=== PATIENT | male | born 1950 | race Caucasian/White ===

== ENCOUNTER → 2016-11-20 | Outpatient (CLI) | payer MEDICARE, BC, OTHER ==
[~2016-11-20] MED LIST: ASPIRIN EC81 M1 PO; FISH OIL300 MG PO; LOPRESSOR PO; NAPROXEN250 MG PO; RAMIPRIL5 MG PO; VYTORIN 10-40 M1 TAB PO
--- NOTE | ~2016-11-20 | MR3 ---
[facility] A Service of [facility] RADIOLOGY TEXT RESULTS PATIENT: NAVEEN LY LOCATION: [facility] : 52 UNIT #: [id number] AGE: [address]: Earnest Caldwell MD SEX: M ORDER DR: [id number] [facility] [address] [place], [place] [address] [id number] O MR#: [id number] Acc #: [id number] NAME: NAVEEN LY : 1950 SEX: M STUDY DATE/TIME: 11/20/2016 15:39 UNIT: [facility] ROOM: STUDY DESCRIPTION: MR Abdomen Wo Contrast Attending Physician: Earnest Caldwell M.D. Referring Physician: Earnest Caldwell M.D. Ordering Physician: Earnest Caldwell M.D. Primary Care Physician: Dio Garrett M.D. MRI CENTER REPORT This report is preliminary unless electronic signature is present. EXAM MRI abdomen without contrast. INDICATION Indeterminate left renal lesion on previous CT. Observation for renal mass versus cyst. PROCEDURE Multiplanar, multisequence MR imaging of the abdomen without the administration of contrast. COMPARISON Unenhanced CT from 08/24/2016. FINDINGS ABDOMEN WITHOUT CONTRAST: Liver has normal size and morphology. No hepatic fat or iron deposition. There are several hepatic cysts, largest is in central segment 6 and measures up to 2.2 cm. The spleen, adrenal glands, pancreas, and included bowel loops have normal signal. Previous cholecystectomy. There are bilateral renal cysts, left greater than right. Lesion of interest in the medial lower pole left kidney measures 1.5 cm. It shows very low signal on T2 and slightly increased signal on the T1 sequences. It is indeterminate but favored to represent a benign proteinaceous or hemorrhagic cyst. Partially included aortic stent graft repair and aneurysm. This measures up to 5.2 cm, previously measuring up to 5.4 cm, measured at a similar level on the previous study. IMPRESSION [facility] A Service of [facility] RADIOLOGY TEXT RESULTS PATIENT: NAVEEN LY LOCATION: [facility] : 52 UNIT #: [id number] AGE: [address]: Earnest Caldwell MD SEX: M ORDER DR: 1. Bilateral renal cysts. 2. Indeterminate lesion lower pole left kidney is favored to represent a benign proteinaceous or hemorrhagic cyst but recommend attention on followup. 3. Stable to possibly slight decrease in size of the infrarenal abdominal aortic aneurysm status post stent graft repair. Dictated by... Devin Encinas M.D. THIS IS AN ELECTRONICALLY VERIFIED REPORT Devin Encinas M.D. at 11/22/2016 1:53 PM NAYAD/christian TD: 11/21/2016 09:57 JOB #: [id number] MRI CENTER REPORT Page 1 of 1 COPY
--- NOTE | ~2016-11-20 | MR152 ---
[facility] A Service of [facility] RADIOLOGY TEXT RESULTS PATIENT: NAVEEN LY LOCATION: [facility] : 52 UNIT #: [id number] AGE: [address]: Earnest Caldwell MD SEX: M ORDER DR: [id number] [facility] [address] [place], [place] [address] [id number] O MR#: [id number] Acc #: [id number] NAME: NAVEEN LY : 1950 SEX: M STUDY DATE/TIME: 11/20/2016 15:39 UNIT: [facility] ROOM: STUDY DESCRIPTION: MR Pelvis Wo Contrast Attending Physician: Earnest Caldwell M.D. Referring Physician: Earnest Caldwell M.D. Ordering Physician: Earnest Caldwell M.D. Primary Care Physician: Dio Garrett M.D. MRI CENTER REPORT This report is preliminary unless electronic signature is present. EXAM MRI pelvis without contrast INDICATION Frequent urination. Renal insufficiency. Indeterminate left renal mass. Microhematuria. Patient is status post abdominal aorta stent graft repair August 2016. Indeterminate left renal mass on CT from 08/24/2016. PROCEDURE Multiplanar, multisequence MR imaging of the pelvis without contrast. COMPARISON Abdomen and pelvis CT from 08/24/2016 FINDINGS The bladder contains a small amount of urine. No bladder mass or asymmetric thickening. The included distal ureters are nondilated. No pelvic fluid collection or mass. The prostate gland has normal signal. Seminal vesicles have normal signal. No pelvic adenopathy. Previous and partially included aortoiliac stent graft. Refer to the separately dictated abdomen MRI for further discussion. Partially included small bilateral hydroceles. IMPRESSION 1. Small amount of urine in the bladder. Bladder is otherwise unremarkable. 2. No pelvic mass or adenopathy or pelvic fluid. 3. Small bilateral hydroceles. Dictated by... Devin Encinas M.D. [facility] A Service of [facility] RADIOLOGY TEXT RESULTS PATIENT: NAVEEN LY LOCATION: [facility] : 52 UNIT #: [id number] AGE: [address]: Earnest Caldwell MD SEX: M ORDER DR: THIS IS AN ELECTRONICALLY VERIFIED REPORT Devin Encinas M.D. at 11/22/2016 1:53 PM Rossy TD: 11/21/2016 10:05 JOB #: [id number] MRI CENTER REPORT Page 1 of 1 COPY
[2016-11-20 16:06] LABS: POC - CREATININE 2.54 mg/dL (0.64-1.27)
== END | disposition home or self-care (01) ==
LOC: CMRI 14:47
PROVIDERS: Urology
DX: N28.89 Other specified disorders of kidney and ureter (principal); N28.1 Cyst of kidney, acquired; N43.3 Hydrocele, unspecified
CPT/HCPCS: 72195; 74181; 82565

== ENCOUNTER → 2016-12-11 | Outpatient (CLI) | payer MEDICARE, BC ==
--- NOTE | ~2016-12-11 | EKG ---
PATIENT: NAVEEN LY UNIT #: [id number] Ventricular Rate: 62 BPM Atrial Rate: 62 BPM P-R Interval: 176 ms QRS Duration: 84 ms Q-T Interval: 390 ms QTC Calculation(Bezet): 395 ms P [place]: 13 degrees Calculated R [place]: -6 degrees Calculated T [place]: 24 degrees Diagnosis Line: Normal sinus rhythm Diagnosis Line: Normal ECG Diagnosis Line: When compared with ECG of 19-MAR-2015 00:18, Diagnosis Line: No significant change was found Diagnosis Line: Confirmed by ANAHI WILLARD MD ([id number]) on Diagnosis Line: 12/11/2016 10:46:55 PM INTERPRETING MD: AKILA
[2016-12-11 09:01] LABS: BASOPHIL# 0.1 X10e3 (0-0.3); BASOPHIL% 1.3 % (0-2.5); DIFF IND NO; EOSINOPHIL# 0.3 X10e3 (0-0.7); EOSINOPHIL% 4.1 % (0.0-7.0); HEMATOCRIT 47.8 % (38.0-50.0); LYMPHOCYTE# 1.8 X10e3 (1.0-3.5); MEAN CELL VOLUME 88.3 FL (83-96); MEAN CORPUSCULAR HEMOGLOBIN 29.6 PG (28-34); MEAN CORPUSCULAR HGB CONC 33.5 g/dL (30-36); MEAN PLATELET VOLUME 8.2 FL (6.5-11.5); MONOCYTE# 0.6 X10e3 (0-1.0); NEUTROPHIL# 4.7 X10e3 (1.5-7.1); NEUTROPHIL% 62.6 % (40-75); PLATELET COUNT 131 X10e3 (140-420); RED BLOOD COUNT 5.42 X10e (3.90-5.60); RED CELL DISTRIBUTION WIDTH 15.7 % (11.0-15.5); WHITE BLOOD COUNT 7.5 X10e3 (4.0-10.5)
[2016-12-11 09:28] LABS: BUN/CREATININE RATIO 13.6; CALCIUM SERUM 9.3 mg/dL (8.4-10.2); CREATININE SERUM 2.5 mg/dL (0.6-1.4); POTASSIUM 4.4 mmol/L (3.5-5.1)
== END | disposition home or self-care (01) ==
LOC: CLAB 08:36
PROVIDERS: Urology
DX: R31.9 Hematuria, unspecified (principal)
CPT/HCPCS: 36415; 80048; 85025; 93005

== ENCOUNTER → 2017-02-20 | Outpatient (CLI) | payer MEDICARE, BC ==
--- NOTE | ~2017-02-20 | US10 ---
[id number] [facility] [address] [place], [place] [address] [id number] O MR#: [id number] Acc #: [id number] NAME: NAVEEN LY : 1950 SEX: M STUDY DATE/TIME: 02/20/2017 9:10 UNIT: CGUS ROOM: STUDY DESCRIPTION: US Aorta Complete Attending Physician: Osbaldo Myles M.D. Referring Physician: Osbaldo Myles M.D. Ordering Physician: Osbaldo Myles M.D. Primary Care Physician: Dio Garrett M.D. MEDICAL IMAGING REPORT This report is preliminary unless electronic signature is present DATE OF EXAM 02/20/2017 REASON FOR EXAM History of infrarenal aortic aneurysm repaired with endovascular stent graft. EXAM Abdominal aortic ultrasound. FINDINGS B-mode imaging and color Doppler imaging of the infrarenal aorta as well as stent graft was performed. This shows widely patent stent graft throughout its course and no appreciable flow noted within the aortic aneurysm sac. The proximal infrarenal aortic sac diameter was not measured. At the mid-aorta it is 5.5 cm in diameter. Distal aorta is not measured for diameter. The stent graft, itself, is widely patent throughout its course. Diameter of the iliac artery limbs is not made. The right iliac artery velocity is 175 cm/sec and left is 130 cm/sec. IMPRESSION Intact and widely patent infrarenal abdominal aortic stent graft with no evidence of endoleak. There is good flow throughout the aortic stent. Dictated by... Osbaldo Myles M.D. THIS IS AN ELECTRONICALLY VERIFIED REPORT Osbaldo Myles M.D. at 02/28/2017 4:08 PM Duncan TD: 02/20/2017 16:19 JOB #: [id number] MEDICAL IMAGING REPORT Page 1 of 1 COPY
--- NOTE | ~2017-02-20 | CT7 ---
[facility] A Service of [facility] RADIOLOGY TEXT RESULTS PATIENT: NAVEEN LY RAY LOCATION: [place] : 52 UNIT #: [id number] AGE: [address]: Osbaldo Myles MD SEX: M ORDER DR: [id number] [facility] [address] [place], [place] [address] [id number] O MR#: [id number] Acc #: [id number] NAME: NAVEEN LY : 1950 SEX: M STUDY DATE/TIME: 02/20/2017 9:41 UNIT: US ROOM: STUDY DESCRIPTION: CT Abdomen Wo Cont Attending Physician: Osbaldo Myles M.D. Referring Physician: Osbaldo Myles M.D. Ordering Physician: Osbaldo Myles M.D. Primary Care Physician: iDo Garrett M.D. MEDICAL IMAGING REPORT This report is preliminary unless electronic signature is present EXAM CT abdomen without contrast INDICATION Follow up infrarenal abdominal aortic aneurysm. PROCEDURE Unenhanced CT of the abdomen and pelvis. This CT examination was performed with one or more of the following radiation dose reduction techniques: automatic exposure control, adjustment of mA and/or kV according to patient size, and iterative reconstruction. COMPARISON 08/24/2016. FINDINGS ABDOMEN WITHOUT CONTRAST: Liver, spleen, adrenal glands, pancreas show no acute abnormality. Stable cyst in the caudate lobe. 1.3 cm slightly high attenuating lesion lateral left mid kidney has an HU value of 15. A 1.7 cm lesion in the posteromedial lower pole left kidney is stable in size but has an HU value of 19.8. Stable 1.3 cm cyst in the lower pole left kidney. Bowel loops are nondilated. Appendix normal. VASCULAR: Patient status post endovascular stent repair of an infrarenal abdominal aortic aneurysm. Graft is stable in position. Aneurysm sac measures 5.8 x 5.3 cm and is unchanged from the prior. No aggressive appearing bone lesion. IMPRESSION 1. Stable appearance of the infrarenal abdominal aortic aneurysm with [facility] A Service of [facility] RADIOLOGY TEXT RESULTS PATIENT: NAVEEN LY [facility] #: [id number] : 52 UNIT #: [id number] AGE: [address]: Osbaldo Myles MD SEX: M ORDER DR: stable positioning of the stent graft. 2. No acute findings are seen in the abdomen. 3. Stable left renal lesions favored to represent a combination of simple and mildly complicated proteinaceous or hemorrhagic cysts. Refer to previously dictated MRI of the abdomen on 11/20/2016 for further details and follow up recommendations. Dictated by... Devin Encinas M.D. THIS IS AN ELECTRONICALLY VERIFIED REPORT Devin Encinas M.D. at 02/26/2017 8:52 AM JACKIE/flora TD: 02/20/2017 13:35 JOB #: [id number] MEDICAL IMAGING REPORT Page 1 of 1 COPY
== END | disposition home or self-care (01) ==
LOC: CGUS 08:37
DX: I71.4 Abdominal aortic aneurysm, without rupture (principal); N28.89 Other specified disorders of kidney and ureter; Z95.828 Presence of other vascular implants and grafts
CPT/HCPCS: 74150; 76770